=== PATIENT | female | born 1995 | race Two or more races ===

== ENCOUNTER → 2024-06-05 08:13 | Outpatient (CLI) | payer OTHER | END | disposition home or self-care (01) | LOC: PRENATAL 08:13 | PROVIDERS: ATTEND Obstetrics & Gynecology Maternal & Fetal Medicine | DX: O36.80X0 Pregnancy with inconclusive fetal viability, not applicable or unspecified (principal); O34.219 Maternal care for unspecified type scar from previous cesarean delivery; Z14.8 Genetic carrier of other disease; Z3A.14 14 weeks gestation of pregnancy ==

== ENCOUNTER 2024-07-17 10:25 | Outpatient (CLI) | payer OTHER | END 2024-07-17 10:26 | disposition home or self-care (01) | LOC: PRENATAL 10:25 | PROVIDERS: ATTEND Obstetrics & Gynecology Maternal & Fetal Medicine | DX: O44.00 Complete placenta previa NOS or without hemorrhage, unspecified trimester (principal); O34.219 Maternal care for unspecified type scar from previous cesarean delivery; Z3A.20 20 weeks gestation of pregnancy ==

== ENCOUNTER 2024-10-09 09:26 | Outpatient (CLI) | payer OTHER | END 2024-10-09 11:33 | disposition home or self-care (01) | LOC: PRENATAL 09:26 | PROVIDERS: ATTEND Obstetrics & Gynecology Maternal & Fetal Medicine | DX: O26.849 Uterine size-date discrepancy, unspecified trimester (principal); O36.8199 Decreased fetal movements, unspecified trimester, other fetus; Z3A.31 31 weeks gestation of pregnancy ==

== ENCOUNTER 2024-10-28 16:44 | Inpatient (IN) | payer OTHER ==
[~2024-10-28] VITALS: Ht 144.8 cm; Wt 63.0 kg
[2024-10-28 15:08] VITALS: BP 100/70
[2024-10-28] MEDS ORDERED: MORPHINE SULFATE 4 MG/ML CARTRIDGE IV ONE (17:00)
[2024-10-28] MEDS ORDERED: BETAMETHASONE ACETATE,SOD PHOS 30 MG/5 ML ML IM ONE (17:00)
[2024-10-28 17:10] VITALS: BP 95/70
[2024-10-28] MEDS ORDERED: PRENATABS RX T1 EACH PO (17:11)
[2024-10-28 17:18] LABS: URINE APPEARANCE Clear; URINE BILIRRUBIN Negative (NEGATIVE); URINE BLOOD Negative; URINE COLOR Dark Yellow; URINE GLUCOSE Negative (NEGATIVE); URINE KETONE 15 (NEGATIVE); URINE LEUKOCYTE Negative; URINE NITRATE Negative; URINE PROTEIN Trace (NEGATIVE); URINE UROBILINOGEN 1.0 E.U./dl
[2024-10-28 17:19] LABS: BASO % 0.2 % (0.1-1.2); EOS # 0.04 (0.04-0.54); EOS % 0.5 % (0.7-7.0); LYMPH # 1.90 (1.18-3.74); LYMPH % 21.4 % (19.3-53.1); MEAN PLATELET VOLUME 11.80 fl (9.4-12.4); MONO # 0.82 (0.24-0.82); MONO % 9.2 % (4.7-12.5); NEUT # 6.02 (1.56-6.13); NEUT % 67.8 % (34.0-71.1); RED CELL DISTRIBUTION WIDTH 11.9 % (11.6-14.4)
[2024-10-28 17:21] LABS: URINE BACTERIA 301.2 uL (0.0-1933); URINE EPITHELIAL CELLS 15.5 uL (0.0-38.8); URINE RBC 7.3 uL (0.0-20.8); URINE WBC 6.3 uL (0.0-23.2)
[2024-10-28 17:23] LABS: URINE CAST 0.14 uL (0.0-1.40)
[2024-10-28 17:45] LABS: INR 0.95
[2024-10-28] MEDS ORDERED: RINGERS SOLUTION,LACTATED 1,000 ML IV SCH (17:45)
[2024-10-28] MEDS ORDERED: TERBUTALINE SULFATE 1 MG/ML AMPUL SUBCUTANEO SCH (18:00)
[2024-10-28 19:25] VITALS: BP 105/66; O2SAT 100
[2024-10-28 23:24] VITALS: BP 96/61
[2024-10-29] VITALS (7 sets, daily range): BP systolic 91–109; BP diastolic 60–68; O2SAT 98–99
[2024-10-29] MEDS ORDERED: TERBUTALINE SULFATE 1 MG/ML AMPUL SUBCUTANEO ONE (00:30)
[2024-10-29] MEDS ORDERED: MORPHINE SULFATE 4 MG/ML VIAL IV ONE ×2 (00:30→15:55)
[2024-10-29] MEDS ORDERED: MORPHINE SULFATE 4 MG/ML VIAL IV PRN (01:45)
[2024-10-29] MEDS ORDERED: MORPHINE SULFATE 4 MG/ML CARTRIDGE IV ONE (12:30)
[2024-10-29] MEDS ORDERED: OXYTOCIN 10 UNITS/ML VIAL ONE (13:18)
[2024-10-29] MEDS ORDERED: ERYTHROMYCIN BASE OPHT 1GM EACH TUBE OP ONE (13:18)
[2024-10-29] MEDS ORDERED: MORPHINE SULFATE 4 MG/ML CARTRIDGE IV SCH (17:00)
[2024-10-29] MEDS ORDERED: BETAMETHASONE ACETATE,SOD PHOS 30 MG/5 ML ML IM ONE (17:00)
[2024-10-29] MEDS ORDERED: KETOROLAC TROMETHAMINE 60 MG VIAL IM ONE (21:00)
[2024-10-29 21:39] LABS: BASO % 0.1 % (0.1-1.2); EOS # 0.00 (0.04-0.54); EOS % 0.0 % (0.7-7.0); LYMPH # 1.51 (1.18-3.74); LYMPH % 10.0 % (19.3-53.1); MEAN PLATELET VOLUME 11.50 fl (9.4-12.4); MONO # 1.56 (0.24-0.82); MONO % 10.4 % (4.7-12.5); NEUT # 11.80 (1.56-6.13); NEUT % 78.5 % (34.0-71.1); RED CELL DISTRIBUTION WIDTH 11.9 % (11.6-14.4)
[2024-10-30 00:30] VITALS: BP 103/69
[2024-10-30] MEDS ORDERED: OxyCODONE HCL 5 MG TABLET (ROXICODONE) PO SCH (05:00)
[2024-10-30 08:51] VITALS: BP 113/70
[2024-10-30] MEDS ORDERED: DOCUSATE SODIUM 100MG CAP PO SCH (09:00)
[2024-10-30] MEDS ORDERED: PNV,CALCIUM 72/IRON/FOLIC ACID 1 TAB TABLET PO SCH (09:00)
[2024-10-30] MEDS ORDERED: SIMETHICONE 125 MG CAPSULE PO SCH (09:00)
[2024-10-30] MEDS ORDERED: ERYTHROMYCIN BASE OPHT 1GM EACH TUBE OP ONE (14:45)
[2024-10-30] MEDS ORDERED: OXYTOCIN 10 UNITS/ML VIAL IV ONE (14:45)
[2024-10-30 16:24] VITALS: BP 99/64
[2024-10-31 00:04] VITALS: BP 100/67
[2024-10-31 04:00] VITALS: BP 99/60
[2024-10-31 08:02] VITALS: BP 98/62
[2024-10-31 17:09] VITALS: BP 111/78; O2SAT 98
[2024-11-01] VITALS: BP 90/60
[2024-11-01 08:32] VITALS: BP 101/68
[2024-11-01 18:00] VITALS: BP 113/77
[2024-11-01] MEDS ORDERED: OxyCODONE HCL 5 MG TABLET (ROXICODONE) PO ONE (18:15)
== END 2024-11-01 18:48 | disposition home or self-care (01) | DRG 788 ==
LOC: OBS/DEL 16:44 → O/R 10-29 08:12 → LDR 10-29 08:12 → O/R 10-29 14:23 → OB/GYN 10-29 16:16
PROVIDERS: ADMIT Obstetrics & Gynecology; ATTEND Obstetrics & Gynecology
PROC: 4A1HXCZ Monitoring of Products of Conception, Cardiac Rate, External Approach (ICD-10-PCS; 2024-10-29)
PROC: 10D00Z1 Extraction of Products of Conception, Low, Open Approach (ICD-10-PCS; principal; 2024-10-29 16:45)
DX: O60.14X0 Preterm labor third trimester with preterm delivery third trimester, not applicable or unspecified (principal); O34.211 Maternal care for low transverse scar from previous cesarean delivery; Z3A.35 35 weeks gestation of pregnancy; Z37.0 Single live birth